=== PATIENT | female | born 1990 | race Caucasian/White ===

== ENCOUNTER 2018-11-03 16:32 | Emergency (ER) | payer BC ==
[2018-11-03 16:48] VITALS: BP 134/80; PULSE 73
--- NOTE | 2018-11-03 17:03 | ERPHSYRPT ---
- History of Present Illness Time Seen by Provider: 11/03/18 17:00 Source: patient Exam Limitations: clinical condition Patient Subjective Stated Complaint: here for a cat bite from 11/01/18 to left hand, she went to yesterday and was placed on augmentin and had 3 doses and states hand looks worse Triage Nursing Assessment: pt alert, resp easy, skin w/d/p, left hand swollen and red, hand marked with pen and reddness and swelling is worse than yesteday Physician History: PATIENT SUSTAINED CAT BITE TO HER LEFT WRIST AND BACK OF HAND 2 DAYS AGO AND PLACED ON ANTIBIOTIC AUGMENTIN 875 FOR THE PAST 24 HOURS, NO COMPLAINS OF HAND SWELLING TO FOREARM. HAS ASSOCIATED PAIN, DENIES FEVER, CHILLS OR DRAINAGE FROM WOUNDS. Occurred: days ago Method of Injury: other (CAT BITE) Severity of Pain-Max: mild Severity of Pain-Current: mild Extremities Pain Location: wrist: left Modifying Factors: Improves With: movement Allergies/Adverse Reactions: No Known Drug Allergies Allergy (Verified 11/03/18 16:47) Hx Tetanus, Diphtheria Vaccination/Date Given: Yes (10/2018) Hx Influenza Vaccination/Date Given: No Hx Pneumococcal Vaccination/Date Given: No Immunizations Up to Date: Yes - Review of Systems Constitutional: No Fever, No Chills Eyes: No Symptoms Ears, Nose, & Throat: No Symptoms Respiratory: No Symptoms, No Cough, No Dyspnea Cardiac: No Chest Pain, No Edema, No Syncope Abdominal/Gastrointestinal: No Symptoms, No Abdominal Pain, No Nausea, No Vomiting, No Diarrhea Genitourinary Symptoms: No Dysuria Musculoskeletal: No Back Pain, No Neck Pain Skin: No Rash Neurological: No Dizziness, No Focal Weakness, No Sensory Changes Psychological: No Symptoms Endocrine: No Symptoms All Other Systems: Reviewed and Negative - Past Medical History Pertinent Past Medical History: Yes Neurological History: No Pertinent History ENT History: No Pertinent History Cardiac History: No Pertinent History Respiratory History: No Pertinent History Endocrine Medical History: No Pertinent History Musculoskeletal History: No Pertinent History GI Medical History: Diverticulitis History: No Pertinent History Psycho-Social History: Depression Other Medical History: Ovarian cyst & communicable disease HSV - Past Surgical History Past Surgical History: Yes Neuro Surgical History: No Pertinent History Cardiac: No Pertinent History Respiratory: No Pertinent History Gastrointestinal: No Pertinent History Genitourinary: No Pertinent History Musculoskeletal: No Pertinent History Female Surgical History: Section Other Surgical History: abscess on colon - Social History Smoking Status: Current every day smoker How long have you smoked: 10 years Exposure to second hand smoke: Yes Drug Use: marijuana Patient Lives Alone: No - Female History Hx Last Menstrual Period: october Hx Now: No - Nursing Vital Signs Nursing Vital Signs: Initial Vital Signs Temperature 98.2 F 11/03/18 16:42 Pulse Rate 73 11/03/18 16:42 Respiratory Rate 16 11/03/18 16:42 Blood Pressure 134/80 11/03/18 16:42 O2 Sat by Pulse Oximetry 95 11/03/18 16:42 Pain Scale Pain Intensity 4 - Physical Exam Hand Exam: soft tissue tenderness (ERYTHEMA WITH SWELLING DORSUM LEFT HAND 5CM X 17, NO EVIDENCE OF PUNCTURE WOUNDS) DTR - Upper Extremity Exam: bicep (R): 2+, bicep (L): 2+, tricep (R): 2+, tricep (L): 2+ Mental Status Exam: alert, oriented x 3 SpO2 Interpretation: normal SpO2: 95 Ordered Tests: Active Orders 24 hr Category Date Time Status BLOOD CULTURE Stat Lab 11/03/18 17:15 Received CBC W DIFF Stat Lab 11/03/18 17:15 Completed Medication Summary Generic Name Dose Route Start Last Admin Trade Name Freq PRN Reason Stop Dose Admin Sodium Chloride 1,000 mls @ 250 mls/hr 11/03/18 17:15 11/03/18 17:27 Sodium Chloride 0.9% 1000 Ml IV 12/03/18 17:14 250 mls/hr .Q4H JESSIE Administration Discontinued Medications Generic Name Dose Route Start Last Admin Trade Name Freq PRN Reason Stop Dose Admin Vancomycin HCl 1 gm in 250 mls @ 167 mls/hr 11/03/18 17:06 11/03/18 17:27 Vancomycin 1gm/ Ns 250ml IV 11/03/18 18:35 167 mls/hr STAT ONE Administration Vancomycin HCl Confirm 11/03/18 17:26 Vancomycin 1gm/ Ns 250ml Administered 11/03/18 17:27 Dose 250 mls @ ud IV .STK-MED ONE Ketorolac Tromethamine 30 mg 11/03/18 17:16 11/03/18 17:27 Toradol 30 Mg Injection IV 11/03/18 17:17 30 mg STAT ONE Administration Ketorolac Tromethamine Confirm 11/03/18 17:25 Toradol 30 Mg Injection Administered 11/03/18 17:26 Dose 30 mg .ROUTE .STK-MED ONE Lab/Rad Data: Laboratory Result Diagrams 11/03/18 17:15 Laboratory Results 11/03/18 Range/Units 17:15 WBC 12.5 H (4.0-10.5) K/mm3 RBC 4.72 (4.1-5.4) M/mm3 Hgb 14.5 (12.0-16.0) gm/dl Hct 41.9 (35-47) % MCV 88.8 (78-100) fl MCH 30.7 (26-32) pg MCHC 34.6 (32-36) g/dl RDW 13.2 (11.5-14.0) % Plt Count 232 (150-450) K/mm3 MPV 10.4 H (6-9.5) fl Gran % 71.3 H (36.0-66.0) % Eos # (Auto) 0.10 (0-0.5) Absolute Lymphs (auto) 2.69 (1.0-4.6) Absolute Monos (auto) 0.78 (0.0-1.3) Lymphocytes % 21.5 L (24.0-44.0) % Monocytes % 6.2 (0.0-12.0) % Eosinophils % 0.8 (0.00-5.0) % Basophils % 0.2 (0.0-0.4) % Absolute Granulocytes 8.91 H (1.4-6.9) Basophils # 0.03 (0-0.4) - Progress Progress Note: 11/03/18 17:26 IV NORMAL SALINE 250ML/HR, AFTER 2 SETS BLOOD CULTURES. VANCOMYCIN 1000MG IVPB Counseled pt/family regarding: lab results, diagnosis, need for follow-up - Departure Departure Disposition: Home Clinical Impression: CELLULITIS LEFT HAND Condition: Stable Critical Care Time: No Referrals: Provider,Unknown [Primary Care Provider] - Additional Instructions: CONTINUE ANTIBIOTIC DIRECTED. FOLLOWUP WITH YOUR PRIMARY CARE PROVIDER FOR OUTPATIENT ANTIBIOTIC AT [facility]. ULTRAM 50MG EVERY 6 HOURS NEEDED FOR PAIN. TYLENOL OR MOTRIN FOR FEVER. Prescriptions: Tramadol HCl 50 mg [Ultram 50 mg] 50 mg PO Q6HPRN PRN #16 tablet PRN Reason: Pain
[2018-11-03] MEDS ORDERED: Vancomycin 1GM/ Ns 250ML*** 1 GM/250 ML IVPB IV ONE (17:06)
[2018-11-03] MEDS ORDERED: Sodium Chloride 0.9% 1000 ML 1,000 ML IV SCH (17:15)
[2018-11-03] MEDS ORDERED: TORAdol 30 mg Injection IV ONE (17:16)
[2018-11-03] MEDS ORDERED: Sodium Chloride 0.9% 1000 ML 1,000 ML ONE (17:25)
[2018-11-03] MEDS ORDERED: TORAdol 30 mg Injection ONE (17:25)
[2018-11-03] MEDS ORDERED: Vancomycin 1GM/ Ns 250ML*** 250 ML IV ONE (17:26)
[2018-11-03 17:58] LABS: BASOPHIL % 0.2 % (0.0-0.4); Basophil (Absolute #) 0.03 (0-0.4); Eosinophil % 0.8 % (0.00-5.0); Granulocyte Absolute (ANC) 8.91 (1.4-6.9); Granulocytes % 71.3 % (36.0-66.0); Hematocrit 41.9 % (35-47); Hemoglobin 14.5 gm/dl (12.0-16.0); Lymphocyte (Absolute #) 2.69 (1.0-4.6); Lymphocytes % 21.5 % (24.0-44.0); Mean Cell Volume 88.8 fl (78-100); Mean Corpuscular Hemoglobin 30.7 pg (26-32); Mean Corpuscular Hgb Concent. 34.6 g/dl (32-36); Mean Platelet Volume 10.4 fl (6-9.5); Monocyte (Absolute #) 0.78 (0.0-1.3); Monocytes % 6.2 % (0.0-12.0); Platelet Count 232 K/mm3 (150-450); Red Blood Count 4.72 M/mm3 (4.1-5.4); Red Cell Distribution Width 13.2 % (11.5-14.0); White Blood Count 12.5 K/mm3 (4.0-10.5)
[2018-11-03 18:44] VITALS: O2SAT 95
== END 2018-11-03 19:06 | disposition home or self-care (01) ==
LOC: ED 16:32
DX: L03.114 Cellulitis of left upper limb (principal); W55.03XD Scratched by cat, subsequent encounter
CPT/HCPCS: 36415; 85025; 87040; 96360; 96365; 96374; 99284; J1885; J3370

== ENCOUNTER → 2018-11-03 | Emergency (ER) | payer BC | LOC: ED 17:34 ==

== ENCOUNTER 2025-01-04 15:46 | Emergency (ER) | payer OTHER ==
[2025-01-04 16:10] VITALS: TEMP 97.5
--- NOTE | 2025-01-04 16:11 | ERPHSYRPT ---
- History of Present Illness Time Seen by Provider: 01/04/25 16:00 Source: patient Physician History: Resents with 3 days of left lower quadrant pain. She has been on Cipro and Flagyl during this timeframe because she has had a prior history of diverticulitis. She has no fever or chills. She reports no vomiting. She states she has had slight decreased urine output and slight nausea. Provider sent her over to make sure she does not have an abscess that she has had 1 of these previously. She reports she does not have a menstrual periods because of an IUD. Denies any female symptoms of discharge or urinary symptoms Allergies/Adverse Reactions: No Known Drug Allergies Allergy (Verified 11/03/18 16:47) Home Medications: Ciprofloxacin HCl [Cipro] 250 mg PO DAILY 01/04/25 [History] Hx Tetanus, Diphtheria Vaccination/Date Given: Yes (10/2018) Hx Influenza Vaccination/Date Given: No Hx Pneumococcal Vaccination/Date Given: No - Review of Systems Constitutional: No Fever, No Chills Eyes: No Symptoms Ears, Nose, & Throat: No Symptoms Respiratory: No Cough, No Dyspnea Cardiac: No Chest Pain, No Edema, No Syncope Abdominal/Gastrointestinal: Abdominal Pain, Nausea, No Vomiting, No Diarrhea Genitourinary Symptoms: No Dysuria Musculoskeletal: No Back Pain, No Neck Pain Skin: No Rash Neurological: No Dizziness, No Focal Weakness, No Sensory Changes Psychological: No Symptoms Endocrine: No Symptoms All Other Systems: Reviewed and Negative - Past Medical History Pertinent Past Medical History: Yes Neurological History: No Pertinent History ENT History: No Pertinent History Cardiac History: No Pertinent History Respiratory History: No Pertinent History Endocrine Medical History: No Pertinent History Musculoskeletal History: No Pertinent History GI Medical History: Diverticulitis History: No Pertinent History Psycho-Social History: Depression Other Medical History: Ovarian cyst & communicable disease HSV - Past Surgical History Past Surgical History: Yes Neuro Surgical History: No Pertinent History Cardiac: No Pertinent History Respiratory: No Pertinent History Gastrointestinal: No Pertinent History Genitourinary: No Pertinent History Musculoskeletal: No Pertinent History Female Surgical History: Section Other Surgical History: abscess on colon - Social History Smoking Status: Current every day smoker How long have you smoked: 10 years Exposure to second hand smoke: Yes Drug Use: marijuana Patient Lives Alone: No - Nursing Vital Signs Nursing Vital Signs: Initial Vital Signs Temperature 97.5 F 01/04/25 15:51 Pulse Rate 99 H 01/04/25 15:51 Respiratory Rate 28 H 01/04/25 15:51 Blood Pressure 153/89 01/04/25 15:51 Pain Scale Pain Intensity 6 - Physical Exam General Appearance: no apparent distress Eye Exam: PERRL/EOMI, eyes nml inspection Ears, Nose, Throat Exam: normal ENT inspection, TMs normal, pharynx normal, moist mucous membranes Neck Exam: normal inspection, non-tender, supple, full range of motion Respiratory Exam: normal breath sounds, lungs clear, No respiratory distress Cardiovascular Exam: regular rate/rhythm, normal heart sounds, normal peripheral pulses Gastrointestinal/Abdomen Exam: soft, normal bowel sounds, tenderness, other (He has a very minimal tenderness in the left lower quadrant to deep palpation only, no guarding or rebound tenderness), No mass Back Exam: normal inspection, normal range of motion, No CVA tenderness, No vertebral tenderness Extremity Exam: normal inspection, normal range of motion, pelvis stable Neurologic Exam: alert, oriented x 3, cooperative, normal mood/affect, nml cerebellar function, nml station & gait, sensation nml, No motor deficits Skin Exam: normal color, warm, dry, No rash Lymphatic Exam: No adenopathy Ordered Tests: Active Orders 24 hr Category Date Time Status ABDOMEN AND PELVIS W CONTRAST [CT] Stat Exams 01/04/25 16:12 Taken BMP Stat Lab 01/04/25 16:25 Completed CBC W DIFF Stat Lab 01/04/25 16:25 Completed HCG, Quantitative (Inhouse) Stat Lab 01/04/25 16:25 Completed UA W/RFX UR CULTURE Stat Lab 01/04/25 16:29 Completed Lab/Rad Data: Laboratory Result Diagrams 01/04/25 16:25 01/04/25 16:25 Laboratory Results 01/04/25 01/04/25 01/04/25 Range/Units 16:29 16:25 16:25 WBC 16.6 H (3.98-10.04) x10^3/uL RBC 4.90 (3.93-5.22) x10^6/uL Hgb 14.3 (11.2-15.7) g/dL Hct 42.8 (34.1-44.9) % MCV 87.3 (79.4-94.8) fL MCH 29.2 (25.6-32.2) pg MCHC 33.4 (32.2-35.5) g/dL RDW 13.2 (11.7-14.4) % Plt Count 233 (182-369) x10^3/uL MPV 9.2 L (9.4-12.3) fL Gran % 80.2 H (34.0-71.1) % Immature Gran % (Auto) 0.5 H (0.001-0.429) % Nucleat RBC Rel Count 0.0 (0.00-0.2) % Eos # (Auto) 0.08 (0.04-0.36) x10^3/uL Immature Gran # (Auto) 0.09 H (0.001-0.031) x10^3u/L Absolute Lymphs (auto) 2.10 (1.18-3.74) x10^3/uL Absolute Monos (auto) 0.94 H (0.24-0.86) x10^3/uL Absolute Nucleated RBC 0.00 (0.00-0.012) x10^3u/L Lymphocytes % 12.6 L (19.3-51.7) % Monocytes % 5.7 (4.7-12.5) % Eosinophils % 0.5 L (0.7-5.8) % Basophils % 0.5 (0.1-1.2) % Absolute Granulocytes 13.34 H (1.56-6.13) x10^3/uL Basophils # 0.08 (0.01-0.08) x10^3/uL Sodium 135 (135-145) mmol/L Potassium 3.9 (3.5-5.1) mmol/L Chloride 109 H (98-107) mmol/L Carbon Dioxide 18 L (22-30) mmol/L Anion Gap 12.2 (5-15) MEQ/L BUN 7 (7-17) mg/dL Creatinine 0.57 (0.52-1.04) mg/dL Estimated GFR 122.2 ML/MIN Glucose 100 (74-106) mg/dL Calcium 8.7 (8.4-10.2) mg/dL Beta HCG, Quant < 2.39 mIU/ml Urine Color Yellow (Yellow) Urine Appearance Clear (Clear) Urine pH 5.0 (4.6-8.0) Ur Specific [place] 1.020 (1.005-1.030) Urine Protein Negative (Negative) Urine Glucose (UA) Negative (Negative) mg/dL Urine Ketones Negative (Negative) Urine Blood Negative (Negative) Urine Nitrite Negative (Negative) Urine Bilirubin Negative (Negative) Urine Urobilinogen 1.0 A (0.2) mg/dL Ur Leukocyte Esterase Trace A (Negative) U Hyaline Cast (Auto) NONE SEEN (0-2) /LPF Urine Microscopic RBC 0-2 (0-5) /HPF Urine Microscopic WBC 0-2 (0-5) /HPF Ur Epithelial Cells Few (None Seen) /HPF Urine Bacteria Few A (None Seen) /HPF Urine Culture Reflexed NO (NO) CT no showed recurring noncomplicated moderate sigmoid diverticulitis and left ovarian cyst complication - Departure Departure Disposition: Home Clinical Impression: Diverticulitis, Ovarian cyst Condition: Good Critical Care Time: No Referrals: DEEPTHI DARBY MD [Primary Care Provider, [facility]] - Follow up/PCP as directed Instructions: Diverticulitis Additional Instructions: Drink plenty of fluids. Tell her ibuprofen for discomfort. Take the antibiotic as directed you have been placed on a longer course of antibiotic to help clear up the symptoms. Follow-up with your doctor if not better this week for worsening symptoms or concerns Prescriptions: Amox Tr/Potass Clav. 875 mg [Augmentin 875-125 Tablet] 1 each PO BID 10 Days #20 tablet
[2025-01-04 16:30] LABS: BASOPHIL % 0.5 % (0.1-1.2); Basophil (Absolute #) 0.08 x10^3/uL (0.01-0.08); Eosinophil (Absolute #) 0.08 x10^3/uL (0.04-0.36); Hematocrit 42.8 % (34.1-44.9); Hemoglobin 14.3 g/dL (11.2-15.7); IMMATURE GRAN # 0.09 x10^3u/L (0.001-0.031); IMMATURE GRAN % 0.5 % (0.001-0.429); Lymphocyte (Absolute #) 2.10 x10^3/uL (1.18-3.74); Mean Corpuscular Hemoglobin 29.2 pg (25.6-32.2); Mean Corpuscular Hgb Concent. 33.4 g/dL (32.2-35.5); Monocyte (Absolute #) 0.94 x10^3/uL (0.24-0.86); NUCLEATED RBC # 0.00 x10^3u/L (0.00-0.012); NUCLEATED RBC % 0.0 % (0.00-0.2); Platelet Count 233 x10^3/uL (182-369); Red Blood Count 4.90 x10^6/uL (3.93-5.22); White Blood Count 16.6 x10^3/uL (3.98-10.04)
[2025-01-04 16:41] LABS: Glucose, Urine Negative (Negative); Protein,Urine Dip Negative (Negative); RBC 0-2 /HPF (0-5); WBC 0-2 /HPF (0-5)
[2025-01-04 17:04] LABS: Calcium 8.7 mg/dL (8.4-10.2); Carbon Dioxide 18 mmol/L (22-30); Creatinine 1 0.57 mg/dL (0.52-1.04); EST GLOMERULAR FILTRATION RATE 122.2 ML/MIN; Glucose 100 mg/dL (74-106); Potassium 3.9 mmol/L (3.5-5.1)
[2025-01-04 19:06] VITALS: BP 125/80; PULSE 90; RESP 25; O2SAT 99
--- NOTE | 2025-01-05 08:41 | XRAY ---
Indication: Left lower quadrant pain. Multiple contiguous axial images obtained through the abdomen and pelvis using 80 cc Isovue 370 contrast. Comparison: May 08, 2023 Lung bases clear. Heart not enlarged. New small hiatal hernia. Noncontrasted stomach and bowel loops appear nonobstructed with normal appendix. Again scattered colonic diverticulosis greatest in descending and sigmoid. Mid sigmoid again demonstrates moderate bowel wall thickening and pericolonic stranding favoring diverticulitis. No free fluid/air. Uterus again demonstrates IUD in Situ. Interval enlarging left ovary cysts, largest 3.3 cm. Remaining liver, gallbladder, pancreas, spleen, adrenal glands, kidneys, ureters, bladder, and uterus are unremarkable. Minimal distal aortic calcifications. No AAA or pathologic retroperitoneal lymphadenopathy. Osseous structures intact. Impression: 1. Again colonic diverticulosis with recurring noncomplicated sigmoid diverticulitis. 2. Enlarging left ovary cysts. Pelvic sonogram may yield further information if there is clinical concern.
== END 2025-01-04 19:35 | disposition home or self-care (01) ==
LOC: ED 15:46
DX: K57.32 Diverticulitis of large intestine without perforation or abscess without bleeding (principal); N83.202 Unspecified ovarian cyst, left side; R10.32 Left lower quadrant pain; Z79.899 Other long term (current) drug therapy; Z72.0 Tobacco use